=== PATIENT | female | born 1980 | race Hispanic/Latino ===

== ENCOUNTER → 2024-01-24 11:59 | Outpatient (REF) | payer OTHER, SELFPAY | LOC: HWRAD 11:59 | PROVIDERS: ATTENDING PHYSICIAN Nurse Practitioner Adult Health | DX: R55 Syncope and collapse (principal); R94.31 Abnormal electrocardiogram [ECG] [EKG] | CPT/HCPCS: 71046 ==

== ENCOUNTER → 2024-10-09 13:47 | Outpatient (REF) | payer OTHER, SELFPAY | LOC: WDC 13:47 | PROVIDERS: ATTENDING PHYSICIAN Nurse Practitioner Adult Health | DX: Z12.31 Encounter for screening mammogram for malignant neoplasm of breast (principal) | CPT/HCPCS: 77063; 77067 ==

== ENCOUNTER 2025-02-09 19:15 | Emergency (ER) | payer OTHER, SELFPAY ==
[2025-02-09 19:26] VITALS: BP 110/67
[2025-02-09 19:57] LABS: COVID-19 Antigen Negative (Negative)
[2025-02-09 20:02] LABS: Monotest Negative (Negative)
[2025-02-09] MEDS: TORADOL 15 MG IV (21:47)
[2025-02-09] MEDS: DECADRON 10 MG IV (21:47)
[2025-02-09] MEDS: NSS 1000 IV (21:48)
[2025-02-09 21:56] LABS: % Basophils 0.5 % (0-2); % Immature Granulocytes 0.2 % (0-0.5); % Lymphocytes 26.4 % (20.5-51.1); % Monocytes 5.2 % (1.7-9.3); % Neutrophils 66.7 % (42.2-75.2); Absolute Basophils 0.1 10^3/uL (0-0.2); Absolute Eosinophils 0.1 10^3/uL (0-0.7); Absolute Lymphocytes 2.9 10^3/uL (1.2-3.4); Absolute Monocytes 0.6 10^3/uL (0.1-0.6); Absolute Neutrophils 7.4 10^3/uL (1.4-6.5); Hematocrit 41.9 % (37.0-47.0); Hemoglobin 13.9 g/dL (12.0-16.0); Mean Corp Hgb Conc. 33.2 g/dL (33.0-37.0); Mean Corpuscular Volume 84.5 fL (81.0-99.0); Mean Platelet Volume 9.5 fL (7.4-10.4); Nucleated Red Blood Cells % 0 %; Platelet Count 213 10^3/uL (130-400); Red Blood Cell Count 4.96 10^6/uL (4.20-5.40); Red Cell Dist. Width 12.9 % (11.5-14.5)
[2025-02-09 22:10] LABS: ALT (SGPT) 25 U/L (0-35); AST (SGOT) 25 U/L (14-36); Albumin 3.9 g/dl (3.5-5.0); Alkaline Phosphatase 175 U/L (38-126); Blood Urea Nitrogen 13 mg/dl (7-17); Calcium 9.4 mg/dl (8.4-10.2); Carbon Dioxide 26 mmol/L (22-30); Chloride 104 mmol/L (98-107); Glucose 104 mg/dl (70-99); HCG, Serum Qualitative Screen Positive; Potassium 4.1 mmol/L (3.5-5.1); Sodium 136 mmol/L (135-145); Total Bilirubin 0.9 mg/dl (0.2-1.3); Total Protein 6.9 g/dl (6.3-8.2); eGFR > 60.00
--- NOTE | 2025-02-09 22:16 | ED.GENMED ---
History of Present Illness
<Yana Parra PA-C - Last Filed: 02/10/25 17:03>
General
Chief Complaint: Throat Problem
Source: patient
Exam Limitations: none
Time Seen by Provider: 02/09/25 20:59
Nursing documentation reviewed up to this point in time: agreed with
History of Present Illness
History of Present Illness:
Patient is a 44-year-old female with history of Graves' disease presenting to the emergency department with sore throat. Patient states that symptoms seemed to begin with a upper respiratory infection about 3 months ago which resolved. However�she
has noticed intermittent, recurrent severe sore throats over the past few months. She has been treated with multiple rounds of antibiotics but symptoms have returned each time.
Today�patient states sore throat returned and was more severe causing significant pain with swallowing. Patient denies any associated fever, cough, nasal congestion. Patient denies any difficulty breathing. Patient denies any abdominal pain or
rash. No known sick contacts.
Patient has previously tested negative for COVID, flu, and strep.
Past History
<Yana Parra PA-C - Last Filed: 02/10/25 17:03>
Past History
ED Past Medical History: None
Social History
Tobacco: Non-smoker
Alcohol: Occasional
Family History
Family History: Diabetes
Review of Systems
<Yana Parra PA-C - Last Filed: 02/10/25 17:03>
Review of Systems
Allergies reviewed?: Yes
All Other Systems: ROS reviewed and negative except as documented in HPI and ROS
Phy Exam
<Yana Parra PA-C - Last Filed: 02/10/25 17:03>
Physical Exam
Physical Exam:
Vitals: Patient's vital signs are stable. Afebrile
General: Patient is mildly uncomfortable appearing due to pain. Nontoxic appearing
Skin: Warm and dry, no rashes or lesions
Head: Normocephalic, atraumatic
Eyes: Sclera nonicteric. EOMs intact. No nystagmus.
Throat: Mild pharyngeal erythema and swelling of oropharynx. Uvula appears midline. No airway compromise. No stridor. Clear speach.
Neck: Normal ROM, no cervical spine tenderness, no meningismus. No palpable lymphadenopathy.
Cardiac: Regular rate and rhythm, no murmurs.
Pulm: Normal respiratory effort, no wheezes, rales, rhonchi heard on exam.
Abdomen: Abdomen soft. No abdominal tenderness.
Extremities: No evidence of cyanosis or edema. Palpable DP pulses bilaterally
Neuro: AAOx3. Grossly intact.
Psychiatric: Normal affect.
Course
<Yana Parra PA-C - Last Filed: 02/10/25 17:03>
Orders/Labs/Results
Orders:
Orders
02/09/25 19:32
COVID-19 Antigen Urgent
Source: Nasal Swab
Monotest Urgent
Influenza A+B Rapid Molecular Urgent
VIVI Source: Nasal Swab
Specimen Description:
02/09/25 21:[address] [CT Neck With Iv Contrast] Urgent
Comment:
Reason For Exam: sore throat, dysphagia
0.9% Sodium Chloride 1000 ml [Nss] 1,000 ml IV BOLUS
Dexamethasone Sod Phosphate [Decadron] 10 mg IV NOW STA
Ketorolac [Toradol] 15 mg IV NOW STA
02/09/25 21:31
Test Result ONCE
02/09/25 21:45
Beta HCG Quantitative Urgent
Comment: ADD ON
Complete Blood Count/With Diff Urgent
Comprehensive Metabolic Panel Urgent
HCG, Serum Qualitative Screen Urgent
Rapid Strep Group A Urgent
VIVI Source: Throat/Pharynx
Specimen Description:
Date Specimen was Collected: 02/09/25
Time Specimen was Collected: 21:35
Throat Culture [Throat Culture, Comprehensive] Urgent
VIVI Source: Throat/Pharynx
Specimen Description:
Date Specimen was Collected: 02/09/25
Time Specimen was Collected: 21:35
02/09/25 22:13
Add On- LAB Urgent
Tests Added?: hcg- quantitative
Abnormal Lab Results
02/09/25
21:45
WBC 11.0 H 10^3/uL
(4.8-10.8)
Absolute Neuts (auto) 7.4 H 10^3/uL
(1.4-6.5)
Glucose 104 H mg/dl
(70-99)
Alkaline Phosphatase 175 H U/L
(38-126)
02/09/25 21:45
02/09/25 21:45
Vital Signs
Initial and Last Documented VS:
Initial Vital Signs
Temp Pulse Resp BP Pulse Ox
98.2 F 86 16 110/67 99
02/09/25 19:26 02/09/25 19:26 02/09/25 19:26 02/09/25 19:26 02/09/25 19:26
Last Documented Vital Signs
Temp Pulse Resp BP Pulse Ox
98.2 F 80 16 118/69 99
02/09/25 19:26 02/09/25 23:55 02/09/25 23:55 02/09/25 23:55 02/09/25 23:55
<Stuart Pérez, DO - Last Filed: 02/09/25 23:41>
Orders/Labs/Results
Orders:
Orders
02/09/25 19:32
COVID-19 Antigen Urgent
Source: Nasal Swab
Monotest Urgent
Influenza A+B Rapid Molecular Urgent
VIVI Source: Nasal Swab
Specimen Description:
02/09/25 21:[address] [CT Neck With Iv Contrast] Urgent
Comment:
Reason For Exam: sore throat, dysphagia
0.9% Sodium Chloride 1000 ml [Nss] 1,000 ml IV BOLUS
Dexamethasone Sod Phosphate [Decadron] 10 mg IV NOW STA
Ketorolac [Toradol] 15 mg IV NOW STA
02/09/25 21:31
Test Result ONCE
02/09/25 21:45
Beta HCG Quantitative Urgent
Comment: ADD ON
Complete Blood Count/With Diff Urgent
Comprehensive Metabolic Panel Urgent
HCG, Serum Qualitative Screen Urgent
Rapid Strep Group A Urgent
VIVI Source: Throat/Pharynx
Specimen Description:
Date Specimen was Collected: 02/09/25
Time Specimen was Collected: 21:35
Throat Culture [Throat Culture, Comprehensive] Urgent
VIVI Source: Throat/Pharynx
Specimen Description:
Date Specimen was Collected: 02/09/25
Time Specimen was Collected: 21:35
02/09/25 22:13
Add On- LAB Urgent
Tests Added?: hcg- quantitative
Abnormal Lab Results
02/09/25
21:45
WBC 11.0 H 10^3/uL
(4.8-10.8)
Absolute Neuts (auto) 7.4 H 10^3/uL
(1.4-6.5)
Glucose 104 H mg/dl
(70-99)
Alkaline Phosphatase 175 H U/L
(38-126)
02/09/25 21:45
02/09/25 21:45
Vital Signs
Initial and Last Documented VS:
Initial Vital Signs
Temp Pulse Resp BP Pulse Ox
98.2 F 86 16 110/67 99
02/09/25 19:26 02/09/25 19:26 02/09/25 19:26 02/09/25 19:26 02/09/25 19:26
Last Documented Vital Signs
Temp Pulse Resp BP Pulse Ox
98.2 F 80 16 118/69 99
02/09/25 19:26 02/09/25 23:55 02/09/25 23:55 02/09/25 23:55 02/09/25 23:55
<Yana Parra PA-C - Last Filed: 02/10/25 17:03>
MDM/Problems Addressed
Differential Diagnosis Includes:
Not limited to: Viral pharyngitis, group A strep pharyngitis, peritonsillar abscess, retropharyngeal abscess, etc.
MDM/Problems Addressed:
44 year old female presenting with worsening sore throat and dysphagia. Symptoms intermittent over the past few months not responding to multiple rounds of abx or steroids. No associated fever, cough, nasal congestion, rash. No difficulty breathing
or shortness of breath. Vitals stable. Patient arrives afebrile. On exam there is mild swelling of oropharynx with no clear tonsillar exudates. Uvula appears midline. Patient has no airway compromise or trismus and has clear speech.
Cardio/pulmonary testing unremarkable. Viral swabs sent in triage and negative including COVID, influenza, and monoscreen. Will check labs and CT neck w/ contrast to r/u PROJECT COACH or deep neck infection. Will give IV decadron, toradol and fluids.
Update: HCG came back positive although on discussion with patient she has not had a period in 4 years and no sexual intercourse in past 10 years. Will send HCG quant although suspect laboratory error. Patient comfortable w/ CT while HCG quant
pending and aware of risks. Otherwise labs unremarkable with no clinically significant abnormalities. Patient does have some improvement in symptoms following IV toradol/steroids.
Update: HCG quant 5.30. Discussed with patient and importance of following up with PCP for repeat laboratory draw and further evaluation if needed. Patient expressed understanding. CT neck shows bilateral tonsiliths. No evidence of PROJECT COACH or other
abscess/infectious process. On reexamination with attending physician - visible tonsilith on left although multiple attempts to remove were unsuccessful. Patient is in no distress with no evidence of airway compromise. Definite improvement in
symptoms with toradol. Admit not indicated at this time. Will have patient f/u with ENT for further evaluation / management. Advised salt water rinses, NSAIDs. Strict retun precautions discussed. Patient expressed verbal understanding.
Chronic conditions affecting care:
N/A
Acute Exacerbation and/or Progression of Chronic Illness:
N/A
<Yana Parra PA-C - Last Filed: 02/10/25 17:03>
*Radiology
Radiology exam reviewed: radiology read reviewed
*Pulse Oximetry
Patient hypoxic: no
*EKG
Interpreted by ED Provider?: NA
*Operater Interpretation
Rate: Operater- N/A
*Critical Care Note
Total Time (30-74mins, 75-104mins- exclusive of procedures): Not Applicable
ED Attending Note
<Yana Parra PA-C - Last Filed: 02/10/25 17:03>
-
Portions of this chart may have been created with voice recognition software.� Occasional wrong word or��sound alike� substitutions may have occurred due to the inherent limitations of voice recognition software.
<Stuart Pérez DO - Last Filed: 02/09/25 23:41>
ED Attending Note
Patient seen and examined by attending physician: Yes
ED Attending Note:
Pleasant 44-year-old female presents to the Emergency Department with dysphagia. Patient has been on antibiotics 3 times though she has not been able to get relief. CT scan of the neck shows Calcifications within the tonsils bilaterally, with
tonsilloliths. On my independent physical exam, patient awake alert and oriented x 3, minimal acute distress. Breathing normally without stridor or increased respiratory effort. Oropharynx slightly swollen. Tonsils are minimally swollen. There
is no tonsillar exudate. There is a notable tonsilith on the left. Multiple attempts to remove it unsuccessful. patient's airway is not compromised. Patient to be discharged follow-up with ENT. Patient was seen in conjunction with the [facility]. I
have reviewed and agree with her history and treatment plan.
Discharge Plan
Departure
Patient Disposition: Home (Routine Discharge)
Date of Disposition: 02/09/25
Time of Disposition: 23:42
Patient with high blood pressure during this ER visit?: No
Condition: Good
Covid-19: Negative COVID-19
Discharge Problem:
Tonsil stone
Prescriptions:
No Action
omeprazole [Prilosec] 40 MG capsule,delayed release(DR/EC)
40 mg PO DAILY Qty: 20 0RF
Paxlovid 300 mg (150 mg x 2)-100 mg tablets,dose pack
See Rx Instructions .ROUTE .COMPLEX Qty: 30 0RF
Rx Instructions:
take TWO 150 mg tablets of nirmatrelvir with ONE 100 mg tablet of ritonavir twice daily for 5 days
Referrals:
Bobby Garcia MD [Active] - Call in 1-3 days for appt
Mary Huerta CRNP [Family Provider] - Call in 1-3 days for appt
Activity Restrictions/Additional Instructions:
Return to the emergency department any high fevers, shortness of breath/difficulty swallowing, intractable pain, severe neck pain, or any other concerns
-As discussed�your CT imaging showed tonsil stones. These tonsil stones may fall out on their own. You can try to gargle salt water as well for some relief.
-You did receive IV steroids and IV Toradol in the emergency department.
-It is important that you continue to stay well-hydrated. You can take ibuprofen as needed to for pain.
-Follow-up with ENT for further evaluation/management. Contact information has been provided for you above
-In addition�your hCG level was very mildly elevated while emergency department. You should follow with your primary care for repeat laboratory analysis to ensure this resolves for further evaluation
Monitor your symptoms closely and return to the emergency department with any acute worsening/new symptoms or any other concerns
Interventions
Interventions:
*Risk Screen - Suicide Last Done: 02/09/25 21:53
*General Assessment Last Done: 02/09/25 21:53
*Neglect/Abuse Screening Last Done: 02/09/25 21:53
*ED- Fall Risk Assessment Last Done: 02/09/25 21:53
*ED COVID-19 Vaccine History Last Done: 02/09/25 21:53
*Nursing Disposition Last Done: 02/09/25 23:55
ED-EENT Assessment Last Done: 02/09/25 21:53
ED- Pulmonary Assessment Last Done: 02/09/25 21:53
Discharge Date and Time
Discharge Date/Time: 02/09/25 23:56
Print Language: SWISS
[2025-02-09 23:55] VITALS: BP 118/69
== END 2025-02-09 23:56 | disposition home or self-care (01) ==
LOC: EMR 19:15
PROVIDERS: Physician Assistant; EMERGENCY PHYSICIAN Emergency Medicine; FAMILY PHYSICIAN Nurse Practitioner Adult Health
DX: J35.8 Other chronic diseases of tonsils and adenoids (principal); R13.10 Dysphagia, unspecified; J02.9 Acute pharyngitis, unspecified; Z11.52 Encounter for screening for COVID-19; E05.00 Thyrotoxicosis with diffuse goiter without thyrotoxic crisis or storm; R56.9 Unspecified convulsions; E78.5 Hyperlipidemia, unspecified; Z88.1 Allergy status to other antibiotic agents; Z91.018 Allergy to other foods
CPT/HCPCS: 99284; 96374; 96375; 96361; 70491; 80053; 84702; 84703; 85025; 86308; 87070; 87502; 87811; 87880; Q9967

== ENCOUNTER → 2025-06-17 11:19 | Outpatient (REF) | payer OTHER, SELFPAY | LOC: HWRAD 11:19 | PROVIDERS: ATTENDING PHYSICIAN Nurse Practitioner Adult Health | DX: M54.42 Lumbago with sciatica, left side (principal) | CPT/HCPCS: 72110 ==

== ENCOUNTER → 2025-06-25 10:15 | Outpatient (REF) | payer OTHER, SELFPAY | LOC: HWRAD 10:15 | PROVIDERS: ATTENDING PHYSICIAN Nurse Practitioner Adult Health | DX: R79.89 Other specified abnormal findings of blood chemistry (principal) | CPT/HCPCS: 76830; 76856 ==